=== PATIENT | female | born 1990 | race Caucasian/White ===

== ENCOUNTER 2017-04-19 19:04 | Emergency (ER) | payer MEDICAID ==
[~2017-04-19] VITALS: Ht 167.6 cm; Wt 93.0 kg
[~2017-04-19 19:04] MED LIST: [UNRECOGNIZED DRUG - REMARK]
[2017-04-19 19:52] VITALS: BP 129/80
== END 2017-04-20 03:21 | disposition left against medical advice (07) ==
LOC: ER 19:04
DX: O20.9 Hemorrhage in early pregnancy, unspecified (principal); O26.891 Other specified pregnancy related conditions, first trimester; R10.9 Unspecified abdominal pain; Z3A.01 Less than 8 weeks gestation of pregnancy; Z53.21 Procedure and treatment not carried out due to patient leaving prior to being seen by health care provider

== ENCOUNTER 2018-07-01 21:34 | Emergency (ER) | payer MEDICAID ==
[~2018-07-01] VITALS: Ht 167.6 cm; Wt 92.0 kg
[2018-07-02] MEDS ORDERED: METOCLOPRAMIDE HCL 10MG TABLET PO ONE (02:00)
[2018-07-02] MEDS ORDERED: ACETAMINOPHEN 325MG TABLET PO PRN (02:00)
[2018-07-02 03:21] LABS: BASOPHILS % 0.3 % (0.0-2.0); EOSINOPHILS % 0.5 % (0.0-5.0); HEMATOCRIT. 42.3 % (36.0-48.0); HEMOGLOBIN. 14.4 g/dL (12.0-16.0); LYMPHOCYTES % 39.1 % (20.0-50.0); MEAN CORPUSCULAR HEMOGLOBIN 31.6 pg (28.0-32.0); MEAN CORPUSCULAR VOLUME 92.8 fL (81.0-99.0); MEAN PLATELET VOLUME 10.8 fl (7.4-10.4); MONOCYTES % 5.5 % (2.0-8.0); NEUTROPHILS % 54.6 % (40.0-76.0); PLATELET 191 x1000/uL (130-400); RED BLOOD CELL COUNT 4.56 mill/uL (4.2-5.4)
[2018-07-02 03:26] LABS: CHLORIDE 102 mEq/L (98-107)
[2018-07-02 03:47] LABS: B-HCG QUANTITATIVE 7089 mIU/mL (<3)
[2018-07-02 04:12] VITALS: BP 117/80
== END 2018-07-02 04:12 | disposition home or self-care (01) ==
LOC: ER 21:34
DX: O20.0 Threatened abortion (principal); Z3A.01 Less than 8 weeks gestation of pregnancy; E11.9 Type 2 diabetes mellitus without complications; O24.311 Unspecified pre-existing diabetes mellitus in pregnancy, first trimester; E11.8 Type 2 diabetes mellitus with unspecified complications
CPT/HCPCS: 36415; 76801; 80053; 81025; 84702; 85025; 86850; 86900; 99285; J8597